=== PATIENT | female | born 1995 | race Caucasian/White ===

== ENCOUNTER 2018-02-22 02:09 | Emergency (ER) | payer SELFPAY ==
[2018-02-22 02:48] VITALS: BMI 18.0
[2018-02-22] MEDS ORDERED: Atrop/Hyosc/Scopal/PB Elixir (120 ml) PO STA (02:54)
[2018-02-22] MEDS ORDERED: Sodium Chloride 0.9% 1,000 ML IV STA ×2 (02:54→03:29)
[2018-02-22] MEDS ORDERED: Alum-Mag Hydrox-Simethicone Susp (30 mL) PO STA (02:54)
[2018-02-22 02:57] VITALS: RESP 18; TEMP 98.6; O2SAT 100
--- NOTE | 2018-02-22 03:02 | ED PDOC ---
Arrival/HPI - General Chief Complaint: GI Problem Time Seen by Provider: 02/22/18 02:28 Historian: Patient - History of Present Illness Narrative History of Present Illness (Text): 02/22/18 02:55 23 year old female, with no significant past medical history, presents to the emergency department with vomiting and diarrhea, since 17:00 yesterday. Patient states she believes it's food poisoning stating she had shrimp from [employer], that looked old. Patient states she has had many episodes of vomiting and diarrhea ever since eating it. Patient states she feels very dehydrated but is unable to hold down liquids. Patient denies any fevers, headache, chest pain, shortness of breath, cough, back pain, neck pain, or any other complaint. Time/Duration: 24 hours (since 17:00 yesterday) Symptom Course: Unchanged Past Medical History - Provider Review Nursing Documentation Reviewed: Yes - Psychiatric Hx Psychophysiologic Disorder: No Hx Substance Use: No - Anesthesia Hx Anesthesia: No Family/Social History - Physician Review Nursing Documentation Reviewed: Yes Family/Social History: No Known Family HX Smoking Status: Never Smoked Hx Alcohol Use: No Hx Substance Use: No Allergies/Home Meds Allergies/Adverse Reactions: Allergies No Known Allergies Allergy (Verified 02/22/18 02:46) Review of Systems - Physician Review All systems were reviewed & negative as marked: Yes - Review of Systems Constitutional: absent: Fevers Respiratory: absent: SOB, Cough Cardiovascular: absent: Chest Pain Gastrointestinal: Diarrhea, Nausea, Vomiting Musculoskeletal: absent: Back Pain, Neck Pain Neurological: absent: Headache Physical Exam Vital Signs Reviewed: Yes Temperature: Afebrile Blood Pressure: Hypotensive Pulse: Tachycardic Respiratory Rate: Normal Appearance: Positive for: Non-Toxic Pain Distress: None Mental Status: Positive for: Alert and Oriented X 3 - Systems Exam Head: Present: Atraumatic, Normocephalic Pupils: Present: PERRL Extroacular Muscles: Present: EOMI Conjunctiva: Present: Normal Mouth: Present: Dry. No: Moist Mucous Membranes Neck: Present: Normal Range of Motion Respiratory/Chest: Present: Clear to Auscultation, Good Air Exchange. No: Respiratory Distress, Accessory Muscle Use Cardiovascular: Present: Regular Rate and Rhythm, Normal S1, S2. No: Murmurs Abdomen: No: Tenderness, Distention, Peritoneal Signs Back: Present: Normal Inspection Upper Extremity: Present: Normal Inspection. No: Cyanosis, Edema Lower Extremity: Present: Normal Inspection. No: Edema Neurological: Present: Speech Normal Skin: Present: Warm, Dry, Normal Color. No: Rashes Psychiatric: Present: Alert, Oriented x 3, Normal Insight, Normal Concentration Medical Decision Making ED Course and Treatment: 02/22/18 03:04 Impression: 23 year old female presents with vomiting and diarrhea. Plan: -- Maalox -- -- Zofran -- Urinalysis -- Labs -- Reassess and disposition Prior Visits: Notes and results from previous visits were reviewed. Progress Notes: - Scribe Statement The provider has reviewed the documentation as recorded by the Scribe Amando Irwin Provider Scribe Attestation: All medical record entries made by the Scribe were at my direction and personally dictated by me. I have reviewed the chart and agree that the record accurately reflects my personal performance of the history, physical exam, medical decision making, and the department course for this patient. I have also personally directed, reviewed, and agree with the discharge instructions and disposition. Disposition/Present on Arrival - Present on Arrival Any Indicators Present on Arrival: No History of DVT/PE: No History of Uncontrolled Diabetes: No Urinary Catheter: No History of Decub. Ulcer: No History Surgical Site Infection Following: None - Disposition Have Diagnosis and Disposition been Completed?: Yes Diagnosis: Gastroenteritis Disposition: HOME/ ROUTINE Disposition Time: 05:02 Patient Plan: Discharge Patient Problems: Current Active Problems Problem Status Onset Gastroenteritis Acute Condition: IMPROVED Discharge Instructions (ExitCare): Gastroenteritis (ED), Gastritis (DC) Additional Instructions: All medical record entries made by the Scribe were at my direction and personally dictated by me. I have reviewed the chart and agree that the record accurately reflects my personal performance of the history, physical exam, medi loree decision making, and the department course for this patient. I have also personally directed, reviewed, and agree with the discharge instructions and disposition. Prescriptions: Ondansetron ODT [Zofran ODT] 4 mg PO PRN PRN #6 odt PRN Reason: Muscle Spasm Referrals: Félix Mason MD [Staff Provider] - Follow up with primary Forms: [employer] (Setswana), WORK NOTE
[2018-02-22 03:27] LABS: BASO # 0.01 K/mm3 (0.0-2.0); BASO % 0.1 % (0.0-3.0); EOS % 0.1 % (1.5-5.0); GRAN # 7.62 (1.4-6.5); GRAN % 93.1 % (50.0-68.0); HEMOGLOBIN 14.1 g/dL (12.0-16.0); LYMPH # 0.3 (1.2-3.4); LYMPH % 3.3 % (22.0-35.0); MEAN CELL VOLUME 82.9 fl (80.0-105.0); MEAN PLATELET VOLUME 9.1 fl (7.0-11.0); MONO # 0.3 (0.1-0.6); MONO % 3.4 % (1.0-6.0); PLATELET COUNT 168 10^3/uL (120.0-450.0); RBC 4.86 10^6/uL (3.5-6.1); RED CELL DISTRIBUTION WIDTH 12.4 % (11.5-14.5); URINE BILIRUBIN NEGATIVE (NEGATIVE); URINE BLOOD NEGATIVE (NEGATIVE); URINE GLUCOSE (UA) NEGATIVE (NEGATIVE); URINE LEUKOCYTE ESTERASE TRACE Leu/uL (NEGATIVE); URINE PROTEIN TRACE mg/dL (<30 mg/dL); URINE UROBILINOGEN 0.2 E.U./dL (<1 E.U./dL); WHITE BLOOD COUNT 8.2 10^3/uL (4.5-11.0)
[2018-02-22 03:28] LABS: URINE APPEARANCE SL CLOUDY (CLEAR); URINE COLOR YELLOW (YELLOW)
[2018-02-22 03:32] LABS: ALB/GLOB RATIO 1.6 (1.1-1.8); ALT/SGPT 28 U/L (7-56); AST/SGOT 27 U/L (14-36); BLOOD UREA NITROGEN 16 mg/dL (7-21); CALCIUM 9.5 mg/dL (8.4-10.5); GFR NON-AFRICAN AMERICAN > 60
[2018-02-22 03:42] LABS: URINE BACTERIA TRACE (NEG); URINE RBC 0 - 2 /hpf (0-2)
[2018-02-22 05:41] VITALS: BP 105/85; PULSE 94
[2018-02-22 06:37] LABS: BAND 8 % (0-2); LYMPHOCYTE 5 % (22.0-35.0); MONOCYTE 3 % (1.0-6.0); NEUTROPHIL 84 % (50.0-70.0); PLATELET ESTIMATE NORMAL (NORMAL)
== END 2018-02-22 05:15 | disposition home or self-care (01) ==
LOC: ED 02:09
DX: K52.9 Noninfective gastroenteritis and colitis, unspecified (principal)
CPT/HCPCS: 80053; 81001; 83735; 85025; 87086; 96374; 99284; J2405; J7030